=== PATIENT | male | born 1950 | race Caucasian/White ===

== ENCOUNTER → 2016-10-17 | Outpatient (CLI) | payer OTHER, MEDICARE ==
--- NOTE | 2016-10-17 07:44 | EKG REPORT ---
SEVERITY:- ABNORMAL ECG - SINUS RHYTHM MULTIPLE VENTRICULAR PREMATURE COMPLEXES LEFT BUNDLE BRANCH BLOCK : Confirmed by: Maria Ines Lewis 17-Oct-2016 07:44:19
[2016-10-17 07:51] LABS: ABSOLUTE EOSINOPHILS # (AUTO) 0.1 10^3/uL (0.0-0.6); ABSOLUTE MONOCYTES (AUTO) 0.6 10^3/uL (0.1-1.4); ABSOLUTE NEUT (AUTO) 3.7 10^3/uL (1.7-8.2); BASOPHILS % (AUTO) 0.3 % (0-2); EOSINOPHILS % (AUTO) 1.9 % (0-6); HEMATOCRIT 43.3 % (37.9-51.0); HEMOGLOBIN 14.5 g/dL (13.5-17.0); HGB HCT DIFFERENCE 0.2; LYMPHOCYTES % (AUTO) 31.5 % (13-45); MEAN CORPUSCULAR HEMOGLOBIN 34.8 pg (27.0-33.4); MEAN CORPUSCULAR HGB CONC 33.5 g/dL (32.0-36.0); MEAN CORPUSCULAR VOLUME 104 fl (80-97); MONOCYTES % (AUTO) 8.8 % (3-13); RED BLOOD COUNT 4.17 10^6/uL (4.35-5.55); SEGMENTED NEUTROPHILS % (AUTO) 57.5 % (42-78); WHITE BLOOD COUNT 6.5 10^3/uL (4.0-10.5)
--- NOTE | 2016-10-17 08:03 | RADIOLOGY REPORT (SQ) ---
EXAM DESCRIPTION: CHEST PA/LATERAL COMPLETED DATE/TIME: 10/17/2016 7:54 am REASON FOR STUDY: PRE-OP COMPARISON: 12/06/2010. EXAM PARAMETERS: NUMBER OF VIEWS: two views TECHNIQUE: Digital Frontal and Lateral radiographic views of the chest acquired. RADIATION DOSE: NA LIMITATIONS: none FINDINGS: LUNGS AND PLEURA: No opacities, masses or pneumothorax. No pleural effusion. MEDIASTINUM AND HILAR STRUCTURES: No masses or contour abnormalities. HEART AND VASCULAR STRUCTURES: Heart normal size. No evidence for failure. BONES: No acute findings. HARDWARE: None in the chest. OTHER: No other significant finding. IMPRESSION: NO SIGNIFICANT RADIOGRAPHIC FINDING IN THE CHEST. TECHNICAL DOCUMENTATION: JOB ID: [id number] [employer]- All Rights Reserved
[2016-10-17 08:11] LABS: ANION GAP 11 (5-19); BLOOD UREA NITROGEN 16 mg/dL (7-20); CALCIUM 9.2 mg/dL (8.4-10.2); CARBON DIOXIDE 25 mmol/L (22-30); CHLORIDE 104 mmol/L (98-107); CREATININE RESULT 0.91 mg/dL (0.52-1.25); GLUCOSE 92 mg/dL (75-110); POTASSIUM 4.2 mmol/L (3.6-5.0); SODIUM 139.9 mmol/L (137-145)
[2016-10-17 11:35] LABS: APPEARANCE,URINE CLEAR; BILIRUBIN,URINE NEGATIVE (NEGATIVE); GLUCOSE, URINE NEGATIVE (NEGATIVE); KETONES,URINE NEGATIVE (NEGATIVE); LEUKOCYTE ESTERASE,URINE NEGATIVE (NEGATIVE); NITRITE,URINE NEGATIVE (NEGATIVE); PROTEIN,URINE NEGATIVE (NEGATIVE); URINE SPECIFIC GRAVITY 1.009; UROBILINOGEN,URINE NEGATIVE mg/dL (<2.0)
== END ==
LOC: OD 07:07
PROVIDERS: ATTEND Orthopaedic Surgery
DX: Z01.810 Encounter for preprocedural cardiovascular examination (principal); Z01.812 Encounter for preprocedural laboratory examination; Z01.818 Encounter for other preprocedural examination
CPT/HCPCS: 36415; 71020; 80048; 81001; 85025; 93005; 93010

== ENCOUNTER 2016-11-06 07:30 | Inpatient (IN) | payer OTHER, MEDICARE ==
[2016-11-13] MEDS ORDERED: LACTATED RINGERS 1000 ML IV PRN (05:00)
[2016-11-13] MEDS ORDERED: VANCOMYCIN HCL INJ 1000 MG VIAL IV PRN (05:00)
[2016-11-13] MEDS ORDERED: CEFAZOLIN INJ 1 GM VIAL IV PRN (05:00)
[2016-11-13] MEDS ORDERED: IBUPROFEN 800 MG/NS 250 ML IV PRN ×2 (05:00)
[2016-11-13] MEDS ORDERED: VANCOMYCIN HCL 1,000 MG in DEXTROSE 5%-WATER 250 ML IV PRN (05:00)
[2016-11-13] MEDS ORDERED: BUPIVACAINE INJ/PF LIPOSOME/PF 266 MG/20 ML SDV INJ PRN (05:00)
[2016-11-13] MEDS ORDERED: LANSOPRAZOLE 15 MG TAB.RAP.DR PO PRN (05:00)
[2016-11-13] MEDS ORDERED: OXYCODONE HCL SR 10 MG TABLET PO PRN (05:00)
[2016-11-13] MEDS ORDERED: LIDOCAINE 0.5% INJ-PF (5 MG/ML) 50 ML SDV SUBCUT PRN (05:00)
[2016-11-13 06:01] LABS: PROTHROMBIN TIME 12.8 SEC (11.4-15.4)
[2016-11-13 06:02] LABS: PARTIAL THROMBOPLASTIN TIME 30.8 SEC (23.5-35.8)
[2016-11-13] MEDS ORDERED: BUPIVACAINE INJ/PF LIPOSOME/PF 266 MG/20 ML SDV ONE (06:41)
[2016-11-13] MEDS ORDERED: THROMBIN (BOVINE) TOPICAL 20000 UNIT VIAL ONE (06:41)
[2016-11-13] MEDS ORDERED: THROMBIN (BOVINE) 5000 UNIT EPITAXIS KIT ONE (06:41)
[2016-11-13] MEDS ORDERED: FENTANYL CITRATE INJ/PF 100 MCG/2 ML AMPUL ONE (07:10)
[2016-11-13] MEDS ORDERED: MIDAZOLAM 2 MG/2 ML INJ ONE (07:11)
[2016-11-13] MEDS ORDERED: TRANEXAMIC ACID INJ/PF 1,000 MG/10 ML SDV IV ONE ×2 (07:11→11:00)
[2016-11-13] MEDS ORDERED: PROPOFOL INJ 200 MG/20 ML VIAL IV ONE ×2 (07:11)
[2016-11-13] MEDS ORDERED: EPHEDRINE SULFATE INJ 50 MG/1 ML AMPULE ONE (07:20)
[2016-11-13] MEDS ORDERED: MEPERIDINE HCL/PF INJ 25 MG/1 ML DISP.SYRIN IV PRN (08:13)
[2016-11-13] MEDS ORDERED: PROMETHAZINE HCL INJ 25 MG/1 ML VIAL IV PRN ×2 (08:13)
[2016-11-13] MEDS ORDERED: DIPHENHYDRAMINE HCL 50 MG/ML VIAL IV PRN ×2 (08:13→09:13)
[2016-11-13] MEDS ORDERED: FENTANYL CITRATE INJ/PF 100 MCG/2 ML AMPUL IV PRN ×3 (08:13)
[2016-11-13] MEDS ORDERED: MORPHINE SULFATE 10 MG/ML INJ IV PRN ×3 (08:13→09:13)
[2016-11-13] MEDS ORDERED: ONDANSETRON HCL INJ/PF 4 MG/2 ML SDV IV PRN ×2 (08:13→09:13)
[2016-11-13] MEDS ORDERED: HYDROMORPHONE HCL INJ/PF 2 MG/ML AMPULE ONE (08:25)
[2016-11-13] MEDS ORDERED: MORPHINE SULFATE 10 MG/ML INJ ONE (08:25)
[2016-11-13] MEDS ORDERED: CALCIUM CARBONATE 500 MG TAB.CHEW PO PRN (09:12)
[2016-11-13] MEDS ORDERED: METHOTREXATE SODIUM 2.5 MG TABLET PO PRN (09:12)
[2016-11-13] MEDS ORDERED: ZOLPIDEM TARTRATE 5 MG TABLET PO PRN (09:13)
[2016-11-13] MEDS ORDERED: ACETAMINOPHEN 325 MG TABLET PO PRN (09:13)
[2016-11-13] MEDS ORDERED: MAG HYDROX/AL HYDROX/SIMETH SUSP 30 ML UDCUP PO PRN (09:13)
[2016-11-13] MEDS ORDERED: ONDANSETRON 4 MG TAB.RAPDIS PO PRN (09:13)
[2016-11-13] MEDS ORDERED: RINGERS SOLUTION,LACTATED 1,000 ML IV PRN (09:13)
[2016-11-13] MEDS ORDERED: MORPHINE SULFATE 10 MG/ML INJ IM PRN (09:13)
[2016-11-13] MEDS: FENTANYL CITRATE INJ/PF 100 MCG/2 ML AMPUL ONE ×2 (09:40→09:58)
[2016-11-13] MEDS ORDERED: HYDROCHLOROTHIAZIDE PO SCH (10:00)
[2016-11-13] MEDS ORDERED: MULTIVIT MIN PO SCH (10:00)
[2016-11-13] MEDS ORDERED: MAGNESIUM 400 MG PO SCH (10:00)
[2016-11-13] MEDS ORDERED: PYRIDOXINE HCL PO SCH (10:00)
[2016-11-13] MEDS ORDERED: [UNRECOGNIZED DRUG - OTHER] PO SCH (10:00)
[2016-11-13] MEDS ORDERED: (PENDING PHARMACY ID) (Pravastatin Sodium [Pravastatin Sodium] 20 MG) PO SCH (10:00)
[2016-11-13] MEDS ORDERED: OLMESARTAN PO SCH (10:00)
[2016-11-13] MEDS ORDERED: LUTEIN T PO SCH (10:00)
[2016-11-13] MEDS ORDERED: OMEGA PO SCH (10:00)
[2016-11-13] MEDS ORDERED: [UNRECOGNIZED DRUG - OTHER] PO SCH (10:00)
[2016-11-13] MEDS ORDERED: FATTY ACIDS PO SCH (10:00)
[2016-11-13] MEDS ORDERED: FOLIC ACID PO SCH (10:00)
[2016-11-13] MEDS ORDERED: (PENDING PHARMACY ID) (Potassium Chloride [Potassium Chloride] 10 MEQ) PO SCH (10:00)
--- NOTE | 2016-11-13 10:02 | RADIOLOGY REPORT (SQ) ---
EXAM DESCRIPTION: PELVIS AP COMPLETED DATE/TIME: 11/13/2016 9:41 am REASON FOR STUDY: Post Op Long Cassette in PACU M16.51 UNILATERAL POST-TRAUMATIC OSTEOARTHRITIS, R IGHT HIP COMPARISON: None. NUMBER OF VIEWS: One view TECHNIQUE: AP Pelvis LIMITATIONS: None. FINDINGS: MINERALIZATION: Normal. HIPS: Status post right total hip replacement. Components appear to be in good position without evid ence of acute fracture or dislocation. Previous noted intramedullary colt in the left femur has been removed. Multiple skin alvarez are present laterally. Mild degenerative changes are seen involving the left hip. PELVIS AND SACRUM: No acute fracture or dislocation. No worrisome bone lesions. PUBIS AND ISCHIUM: No acute fracture. LOWER LUMBAR SPINE: No significant findings as visualized. SOFT TISSUES: Multiple pelvic phleboliths. OTHER: No other significant finding. IMPRESSION: Status post right total hip replacement. TECHNICAL DOCUMENTATION: JOB ID: [id number] [employer]- All Rights Reserved
[2016-11-13] MEDS ORDERED: DEXAMETHASONE SOD PHOSPHATE INJ 4 MG/1 ML VIAL ONE (10:14)
[2016-11-13] MEDS ORDERED: SUCCINYLCHOLINE CHLORIDE INJ 200 MG/10 ML VIAL ONE (10:14)
[2016-11-13] MEDS ORDERED: METOCLOPRAMIDE HCL INJ/PF 10 MG/2 ML SDV ONE (10:14)
[2016-11-13] MEDS ORDERED: PHENYLEPHRINE HCL INJ/PF 10 MG/1 ML SDV ONE (10:14)
[2016-11-13] MEDS ORDERED: LIDOCAINE 2% INJ-PF (20 MG/ML) 10 ML AMPUL ONE (10:14)
[2016-11-13] MEDS ORDERED: ONDANSETRON HCL INJ/PF 4 MG/2 ML SDV ONE (10:14)
--- NOTE | 2016-11-13 10:27 | Operative Report ---
Operative Report DATE OF SURGERY: 11/13/16 PREOPERATIVE DIAGNOSIS: post traumatic r hip oa OPERATION: conversion r hip arthroplasty SURGEON: IVONNE NOVA ANESTHESIA: GA TISSUE REMOVED OR ALTERED: cultures, bone, implant ESTIMATED BLOOD LOSS: 200 PROCEDURE: With the patient in a left lateral decubitus position on the operating table the right lower extremities prepped and draped in a sterile fashion. A longitudinal incision was made with the previous distal interlock on Hero L. The underlying screw is visualized and bone was removed from the superficial surface of this because of overgrowth. Subsequently screws removed uneventfully. Next attention is turned to the hip. Posterior approach the hip was taken. The hip is dislocated and the femoral neck transected using an oscillating saw. A box osteotome was used to gain access to the piriformis fossa. The underlying nail was visualized and removed with the appropriate instrumentation uneventfully. Attention was turned to the acetabulum. Soft tissue is cleared off the room the acetabulum. The acetabulum prepared using a series of hemispherical reamers until a 55 mm reamer seated. Subsequently a 56 mm Ghulam hemispherical titanium cup was impacted into position secured with 1 screw. A 36 mm flat cross-linked polyethylene liner was impacted. Attention is now turned to the femur. The femur was prepared using a series of broaches until a #8 Accolade 2 trial is impacted. Trial reduction is performed first with a and then with a standard neck. It is difficult to reduce this with a standard neck but it is possible. Any further attempts at leg lengthening are not reducible. A decision was made to accept the current construct. The trials were removed. The final #8 Accolade 2 stem is impacted into the canal. A trial reduction was again performed 36 mm chrome cobalt head standard neck extension. This does not quite equalize leg length improved considerably from preop. The final 36 mm chrome cobalt head is impacted onto the trunnion. The hip was reduced. Wound culture with pulse lavage. Is closed in layers with interrupted Vicryl followed by alvarez. Return to the PACU in satisfactory condition.
[2016-11-13] MEDS: METOPROLOL SUCCINATE 25 MG TAB.SR.24H PO SCH ×2 (10:49→22:13)
[2016-11-13] MEDS: MORPHINE SULFATE 10 MG/ML INJ IV PRN (13:49)
[2016-11-13] MEDS: IBUPROFEN 800 MG in NORMAL SALINE 250 ML IV SCH ×2 (14:10→22:14)
[2016-11-13] MEDS: OXYCODONE HCL IR 5 MG TABLET PO PRN ×2 (16:14→22:14)
[2016-11-13] MEDS: OXYCODONE HCL SR 10 MG TABLET PO SCH (17:18)
[2016-11-13] MEDS: SENNOSIDES/DOCUSATE 8.6-50 MG 1 EACH TABLET PO SCH (17:19)
[2016-11-13] MEDS ORDERED: DABIGATRAN ETEXILATE 150 MG CAPSULE PO SCH (18:00)
[2016-11-13] MEDS ORDERED: VANCOMYCIN HCL 1,000 MG in DEXTROSE 5%-WATER 250 ML IV ONE (21:00)
[2016-11-13] MEDS: DABIGATRAN ETEXILATE 150 MG CAPSULE PO SCH (22:13)
[2016-11-13] MEDS: ATORVASTATIN CALCIUM 10 MG TABLET PO SCH (22:14)
[2016-11-14] MEDS: MORPHINE SULFATE 10 MG/ML INJ IV PRN (02:01)
[2016-11-14] MEDS: OXYCODONE HCL IR 5 MG TABLET PO PRN ×2 (04:42→11:52)
[2016-11-14 05:40] LABS: HEMATOCRIT 33.9 % (37.9-51.0); HEMOGLOBIN 11.6 g/dL (13.5-17.0); HGB HCT DIFFERENCE 0.9; MEAN CORPUSCULAR HEMOGLOBIN 35.8 pg (27.0-33.4); MEAN CORPUSCULAR VOLUME 105 fl (80-97); RED BLOOD COUNT 3.23 10^6/uL (4.35-5.55); RED CELL DISTRIBUTION WIDTH 14.3 % (11.5-14.0); WHITE BLOOD COUNT 14.7 10^3/uL (4.0-10.5)
[2016-11-14] MEDS: IBUPROFEN 800 MG in NORMAL SALINE 250 ML IV SCH ×3 (05:56→21:50)
[2016-11-14] MEDS: LANSOPRAZOLE 30 MG TAB.RAP.DR PO SCH (05:57)
[2016-11-14] MEDS: OXYCODONE HCL SR 10 MG TABLET PO SCH ×2 (06:00→17:43)
[2016-11-14 06:10] LABS: ANION GAP 10 (5-19); BLOOD UREA NITROGEN 18 mg/dL (7-20); CALCIUM 8.9 mg/dL (8.4-10.2); CARBON DIOXIDE 26 mmol/L (22-30); CHLORIDE 100 mmol/L (98-107); CREATININE RESULT 1.03 mg/dL (0.52-1.25); GLUCOSE 111 mg/dL (75-110); POTASSIUM 4.2 mmol/L (3.6-5.0)
--- NOTE | 2016-11-14 07:13 | PDOC PROGRESS REPORT ---
Subjective Progress Note for:: 11/14/16 Physical Exam Vital Signs: Temp Pulse Resp BP Pulse Ox 36.6 C 80 16 109/56 L 97 11/13/16 23:19 11/13/16 23:19 11/13/16 23:19 11/13/16 23:19 11/13/16 23:19 Intake & Output 11/13/16 11/14/16 11/15/16 06:59 06:59 06:59 Intake Total 0 7018 Output Total 1900 Balance 0 5118 Weight 96.2 kg General appearance: PRESENT: no acute distress, well-developed, well-nourished Head exam: PRESENT: atraumatic, normocephalic Musculoskeletal exam: PRESENT: ambulatory, other Neurological exam: PRESENT: alert, awake, oriented to person, oriented to place , oriented to time, oriented to situation, CN II-XII grossly intact. ABSENT: motor sensory deficit Psychiatric exam: PRESENT: appropriate affect, normal mood. ABSENT: homicidal ideation, suicidal ideation Skin exam: PRESENT: dry, intact, warm, other - Patient's surgical dressing is clean, dry and in tact. No complaints of pain. No evidence of echymosis, erythema or induration.. ABSENT: cyanosis, rash Results Laboratory Results: 11/14/16 05:26 11/14/16 05:26 11/14/16 11/14/16 05:26 05:26 WBC 14.7 H RBC 3.23 L Hgb 11.6 L Hct 33.9 L MCV 105 H MCH 35.8 H MCHC 34.0 RDW 14.3 H Plt Count 178 Sodium 136.0 L Potassium 4.2 Chloride 100 Carbon Dioxide 26 Anion Gap 10 BUN 18 Creatinine 1.03 Est GFR ( Amer) > 60 Est GFR (Non-Af Amer) > 60 Glucose 111 H Calcium 8.9 Impressions: Pelvis X-Ray 11/13/16 09:14 IMPRESSION: Status post right total hip replacement.
[2016-11-14] MEDS: MAGNESIUM OXIDE 400 MG TABLET PO SCH (09:17)
[2016-11-14] MEDS: PYRIDOXINE HCL 50 MG TABLET PO SCH (09:18)
[2016-11-14] MEDS: POTASSIUM CHLORIDE 10 MEQ TABLET.SA PO SCH (09:18)
[2016-11-14] MEDS: OMEGA-3 ACID ETHYL ESTERS 1 GM CAPSULE PO SCH (09:18)
[2016-11-14] MEDS: DABIGATRAN ETEXILATE 150 MG CAPSULE PO SCH ×2 (09:19→21:49)
[2016-11-14] MEDS: HYDROCHLOROTHIAZIDE 12.5 MG CAPSULE PO SCH (09:20)
[2016-11-14] MEDS: METOPROLOL SUCCINATE 25 MG TAB.SR.24H PO SCH ×2 (09:21→21:49)
[2016-11-14] MEDS: SENNOSIDES/DOCUSATE 8.6-50 MG 1 EACH TABLET PO SCH ×2 (09:22→17:43)
[2016-11-14] MEDS: LOSARTAN POTASSIUM 50 MG TABLET PO SCH (09:23)
[2016-11-14] MEDS: PRENATAL VITAMIN W-O CA NO5/FE FUMARATE/FA CAPSULE PO SCH (16:13)
[2016-11-14] MEDS: ATORVASTATIN CALCIUM 10 MG TABLET PO SCH (21:50)
[2016-11-15] MEDS: LANSOPRAZOLE 30 MG TAB.RAP.DR PO SCH (05:10)
[2016-11-15] MEDS: OXYCODONE HCL SR 10 MG TABLET PO SCH (05:11)
[2016-11-15] MEDS: IBUPROFEN 800 MG in NORMAL SALINE 250 ML IV SCH (05:11)
[2016-11-15 07:47] LABS: HEMATOCRIT 31.4 % (37.9-51.0); HEMOGLOBIN 10.8 g/dL (13.5-17.0); MEAN CORPUSCULAR HEMOGLOBIN 36.3 pg (27.0-33.4); MEAN CORPUSCULAR HGB CONC 34.5 g/dL (32.0-36.0); MEAN CORPUSCULAR VOLUME 105 fl (80-97); RED BLOOD COUNT 2.98 10^6/uL (4.35-5.55); RED CELL DISTRIBUTION WIDTH 14.1 % (11.5-14.0); WHITE BLOOD COUNT 12.4 10^3/uL (4.0-10.5)
[2016-11-15 09:27] VITALS: BP 142/88
--- NOTE | 2016-11-15 09:58 | PDOC DISCHARGE SUMMARY ---
General - Admit/Disc Date/PCP Admission Date/Primary Care Provider: 11/13/16 05:18 AGUSTÍN FIGUEROA MD Discharge Date: 11/15/16 - Additional Information Resuscitation Status: Full Code Discharge Diet: As Tolerated, Regular Discharge Activity: Activity As Tolerated, Balance Activity w/Rest, No Driving, No tub bath Home Medications: Adalimumab [Humira] 40 mg SQ ASDIR PRN 04/24/14 Calcium Carbonate [Tums] 1 tab PO DAILY PRN 04/24/14 Folic Acid/Multivit-Min/Lutein [Centrum Silver Chewable Tablet] 1 tab PO DAILY 04/24/14 Magnesium 400 mg PO DAILY 04/24/14 Methotrexate Sodium [Methotrexate] 6 tab PO ASDIR PRN 04/24/14 Olmesartan/Hydrochlorothiazide [Benicar Hct 20-12.5 mg Tablet] 1 tab PO DAILY [place]-3 Fatty Acids [Fish Oil] 1,000 mg PO DAILY 04/24/14 Potassium Chloride 10 meq PO DAILY 04/24/14 Pyridoxine HCl [Vitamin B-6] 1 tab PO DAILY 04/24/14 Dabigatran Etexilate Mesylate [Pradaxa 150 mg Capsule] 150 mg PO Q12 10/31/16 Meloxicam 15 mg PO DAILY 10/31/16 Metoprolol Succinate 12.5 mg PO BID 10/31/16 Omeprazole 20 mg PO QAM 10/31/16 Pravastatin Sodium 20 mg PO DAILY 10/31/16 Acetaminophen [Tylenol 325 mg Tablet] 650 mg PO Q4HP PRN tablet 11/15/16 Oxycodone HCl [Oxy-Ir 5 mg Tablet] 5 mg PO Q6HP PRN tablet 11/15/16 History of Present Illness History of Present Illness: MARV HOLLINS is a 66 year old male that is post a right hip fracture in the past with an open reduction internal fixation. He developed a posttraumatic arthrosis of the right hip and is now admitted for conversion arthroplasty. Hospital Course Hospital Course: Patient was admitted through the operating room where he undergoes a hardware removal and right total hip arthroplasty which is uncomplicated. He is returned to the floor in satisfactory condition. Makes excellent progress with physical therapy. Physical Exam Vital Signs: Temp Pulse Resp BP Pulse Ox 36.6 C 79 18 142/88 H 96 11/15/16 09:25 11/15/16 09:25 11/15/16 09:25 11/15/16 09:25 11/15/16 09:25 Intake & Output 11/14/16 11/15/16 11/16/16 06:59 06:59 06:59 Intake Total 7018 1690 Output Total 3800 Balance 3218 1690 Weight 96.2 kg General appearance: PRESENT: no acute distress Head exam: PRESENT: normocephalic Eye exam: PRESENT: EOMI Respiratory exam: PRESENT: unlabored Cardiovascular exam: PRESENT: RRR Pulses: PRESENT: +1 pedal pulses bilateral Vascular exam: PRESENT: normal capillary refill GI/Abdominal exam: PRESENT: soft Rectal exam: PRESENT: deferred Extremities exam: PRESENT: other - Right hip picot dressing clean dry and intact. Distal neurovascular examination is intact. There is a mild leg length discrepancy right shorter than left Neurological exam: PRESENT: alert, awake, oriented to person, oriented to place , oriented to time, oriented to situation. ABSENT: motor sensory deficit Psychiatric exam: PRESENT: appropriate affect, normal mood. ABSENT: homicidal ideation, suicidal ideation Skin exam: PRESENT: dry, intact, warm. ABSENT: cyanosis, rash Results Laboratory Results: 11/15/16 04:40 11/14/16 05:26 11/15/16 04:40 WBC 12.4 H RBC 2.98 L Hgb 10.8 L Hct 31.4 L MCV 105 H MCH 36.3 H MCHC 34.5 RDW 14.1 H Plt Count 163 Impressions: Pelvis X-Ray 11/13/16 09:14 IMPRESSION: Status post right total hip replacement. Status: Imported from PACS Plan Discharge Plan: Patient to be discharged home with home health nursing, home health physical therapy, wheeled walker, bedside commode. Right hip picot dressing can be changed on postop day 7 by the visiting nurse service and replaced with an OpSite. Follow-up will be with Dr. Donahue in the [facility] for surgery in 2 weeks for staple removal.
[2016-11-15] MEDS: PYRIDOXINE HCL 50 MG TABLET PO SCH (10:10)
[2016-11-15] MEDS: HYDROCHLOROTHIAZIDE 12.5 MG CAPSULE PO SCH (10:10)
[2016-11-15] MEDS: OMEGA-3 ACID ETHYL ESTERS 1 GM CAPSULE PO SCH (10:10)
[2016-11-15] MEDS: DABIGATRAN ETEXILATE 150 MG CAPSULE PO SCH (10:11)
[2016-11-15] MEDS: LOSARTAN POTASSIUM 50 MG TABLET PO SCH (10:11)
[2016-11-15] MEDS: POTASSIUM CHLORIDE 10 MEQ TABLET.SA PO SCH (10:11)
[2016-11-15] MEDS: METOPROLOL SUCCINATE 25 MG TAB.SR.24H PO SCH (10:12)
[2016-11-15] MEDS: PRENATAL VITAMIN W-O CA NO5/FE FUMARATE/FA CAPSULE PO SCH (10:13)
[2016-11-15] MEDS: SENNOSIDES/DOCUSATE 8.6-50 MG 1 EACH TABLET PO SCH (10:13)
[2016-11-15] MEDS: MAGNESIUM OXIDE 400 MG TABLET PO SCH (10:14)
[2016-11-17] MEDS ORDERED: METHOTREXATE SODIUM 2.5 MG TABLET PO SCH (10:00)
== END 2016-11-15 11:36 | disposition home health service (06) | DRG 468 ==
LOC: INOR 11-13 05:18 → 4S 11-13 10:34
PROVIDERS: ADMIT Orthopaedic Surgery; ATTEND Orthopaedic Surgery
PROC: 0SP90JZ Removal of Synthetic Substitute from Right Hip Joint, Open Approach (ICD-10-PCS; 2016-11-13)
PROC: 0SR902A Replacement of Right Hip Joint with Metal on Polyethylene Synthetic Substitute, Uncemented, Open Approach (ICD-10-PCS; principal; 2016-11-13 07:30)
DX: M16.11 Unilateral primary osteoarthritis, right hip (principal); K21.9 Gastro-esophageal reflux disease without esophagitis; M06.9 Rheumatoid arthritis, unspecified; I10 Essential (primary) hypertension; I48.91 Unspecified atrial fibrillation; I25.10 Atherosclerotic heart disease of native coronary artery without angina pectoris; Z79.899 Other long term (current) drug therapy; Z85.828 Personal history of other malignant neoplasm of skin; Z95.5 Presence of coronary angioplasty implant and graft; Z82.49 Family history of ischemic heart disease and other diseases of the circulatory system
CPT/HCPCS: 01214; 36415; 72170; 80048; 84132; 85027; 85610; 85730; 86850; 86900; 86901; 87070; 87075; 87205; 88304; 88311; 94799; C1713; C9290; G8978-GP; G8979-GP; G8987-GO; G8988-GO; J0330; J0690; J1100; J1170; J1200; J1741; J2250; J2270; J2370; J2405; J2704; J2765; J3010; J3370; J3490; J7050; J7060

== ENCOUNTER → 2016-11-24 | Outpatient (CLI) | payer OTHER, MEDICARE ==
[2016-11-24 12:43] LABS: ABSOLUTE EOSINOPHILS # (AUTO) 0.1 10^3/uL (0.0-0.6); ABSOLUTE LYMPHOCYTES (AUTO) 1.7 10^3/uL (0.5-4.7); ABSOLUTE MONOCYTES (AUTO) 0.8 10^3/uL (0.1-1.4); ABSOLUTE NEUT (AUTO) 6.7 10^3/uL (1.7-8.2); BASOPHILS % (AUTO) 0.4 % (0-2); EOSINOPHILS % (AUTO) 1.3 % (0-6); HEMATOCRIT 31.6 % (37.9-51.0); HEMOGLOBIN 10.9 g/dL (13.5-17.0); HGB HCT DIFFERENCE 1.1; LYMPHOCYTES % (AUTO) 18.3 % (13-45); MEAN CORPUSCULAR HEMOGLOBIN 35.4 pg (27.0-33.4); MEAN CORPUSCULAR HGB CONC 34.4 g/dL (32.0-36.0); MEAN CORPUSCULAR VOLUME 103 fl (80-97); MONOCYTES % (AUTO) 8.8 % (3-13); RED BLOOD COUNT 3.07 10^6/uL (4.35-5.55); SEGMENTED NEUTROPHILS % (AUTO) 71.2 % (42-78); WHITE BLOOD COUNT 9.4 10^3/uL (4.0-10.5)
[2016-11-24 13:11] LABS: ANION GAP 8 (5-19); BLOOD UREA NITROGEN 19 mg/dL (7-20); C-REACTIVE PROTEIN 47.2 mg/L (<10.0); CALCIUM 9.6 mg/dL (8.4-10.2); CARBON DIOXIDE 30 mmol/L (22-30); CHLORIDE 100 mmol/L (98-107); CREATININE RESULT 1.13 mg/dL (0.52-1.25); GLUCOSE 83 mg/dL (75-110); POTASSIUM 4.8 mmol/L (3.6-5.0); SODIUM 138.1 mmol/L (137-145)
[2016-11-24 13:37] LABS: ERYTHROCYTE SEDIMENTATION RATE 71 mm/hr (0-20)
== END ==
LOC: OD 11:49
PROVIDERS: ATTEND Orthopaedic Surgery
DX: T84.51XA Infection and inflammatory reaction due to internal right hip prosthesis, initial encounter (principal)
CPT/HCPCS: 36415; 80048; 85025; 85652; 86140